=== PATIENT | female | born 2005 ===

== ENCOUNTER 2023-12-02 03:24 | Emergency (ER) | payer SELFPAY ==
[2023-12-02] MEDS: Sodium Chloride 0.9% 10 ML Syringe FLUSH PRN (04:07)
[2023-12-02] MEDS: Sodium Chloride 0.9% 2.5 ML Syringe FLUSH PRN (04:07)
[2023-12-02 04:10] LABS: BASOPHILS ABSOLUTE AUTO 0.05 K/uL (0.00-0.30); BASOPHILS PERCENT AUTO 0.3 % (0.0-1.0); EOSINOPHILS ABSOLUTE AUTO 0.01 K/uL (0.00-0.70); EOSINOPHILS PERCENT AUTO 0.1 % (0.0-5.0); HEMATOCRIT 31.1 % (37.0-47.0); HEMOGLOBIN 9.8 g/dL (12.0-16.0); IMMATURE GRAN ABSOLUTE AUTO 0.05 K/uL (0.00-0.05); IMMATURE GRAN PERCENT AUTO 0.3 % (0.0-0.4); LYMPHOCYTES PERCENT AUTO 14.2 % (50.0-65.0); MEAN CORPUSCULAR HEMOGLOBIN 23.1 pg (28.0-32.0); MEAN CORPUSCULAR HGB CONC 31.5 g/dL (32.0-36.0); MEAN CORPUSCULAR VOLUME 73.3 fL (83.0-99.0); MEAN PLATELET VOLUME 9.2 fL (9.4-12.3); MONOCYTES ABSOLUTE AUTO 0.75 K/uL (0.10-1.40); MONOCYTES PERCENT AUTO 5.1 % (2.0-10.0); NEUTROPHILS ABSOLUTE AUTO 11.88 K/uL (1.50-8.50); PLATELET COUNT,PLT 297 K/uL (150-400); RED BLOOD CELL COUNT 4.24 M/uL (4.10-5.30); WHITE BLOOD CELL COUNT,WBC 14.84 K/uL (4.5-13.5)
[2023-12-02 04:37] LABS: A/G RATIO 0.8 (0.9-1.6); ALBUMIN 3.1 g/dL (3.4-5.0); BILIRUBIN TOTAL 0.3 mg/dL (0.2-1.0); CALCIUM 8.8 mg/dL (8.5-10.1); CARBON DIOXIDE,CO2 19.8 mmol/L (21.0-32.0); CREATININE 0.6 mg/dL (0.6-1.0); EST CRCL DRUG DOSING (CG) 113.8 mL/min; POTASSIUM,K 3.3 mmol/L (3.5-5.1); PROTEIN TOTAL,TP 7.2 g/dL (6.4-8.2)
== END 2023-12-02 05:09 ==
LOC: MW.ED 03:24
DX: O02.1 Missed abortion (principal); Z75.8 Other problems related to medical facilities and other health care
CPT/HCPCS: 36415; 76805; 80053; 85025; 99284; J3490; 99283

== ENCOUNTER 2023-12-02 04:26 | Observation (INO) | payer MEDICAID ==
[2023-12-02] MEDS ORDERED: Sodium Chloride 0.9% 10 ML Syringe FLUSH PRN (05:57)
[2023-12-02] MEDS ORDERED: Sodium Chloride 0.9% 2.5 ML Syringe FLUSH PRN (05:57)
[2023-12-02] MEDS ORDERED: Sodium Chloride 0.9% 20 ML SDV IV PRN (05:57)
[2023-12-02] MEDS ORDERED: fentaNYL 100 MCG/2 ML SDV IV PRN (06:44)
[2023-12-02] MEDS ORDERED: Ketorolac 30 MG/ML SDV IVPUSH ONE (06:47)
[2023-12-02] MEDS: Acetaminophen 1,000 MG in Premix Bag 1 BAG IV ONE (06:59)
[2023-12-02] MEDS ORDERED: Misoprostol 200 MCG Tab VAG ONE (07:00)
[2023-12-02] MEDS: Oxytocin/0.9 % Sodium Chloride 30 UNIT/500 ML BAG ONE (07:00)
[2023-12-02 08:14] LABS: D-DIMER QUANTITATIVE 2.57 mg/L FEU (0.00-0.50); INR < 0.93 (0.86-1.11); PTT,PARTIAL THROMBOPLSTIN TIME 24.3 SEC (23.9-30.7)
[2023-12-02 08:21] LABS: HEMOGLOBIN A1C 5.2 %
[2023-12-02 08:31] LABS: TSH ULTRASENSITIVE 0.79 uIU/mL (0.36-3.74)
[2023-12-02 08:32] LABS: FIBRINOGEN 421 mg/dL (187-446)
[2023-12-02] MEDS ORDERED: Misoprostol 25 MCG (1/4 of 100 MCG) Tab VAG SCH (10:00)
[2023-12-05 12:07] LABS: HOMOCYSTINE 3 umol/L (0-15)
[2023-12-05 18:02] LABS: PARVOVIRUS B19 IGG 4.43 IV (<=0.90); PARVOVIRUS B19 IGM 0.25 IV (<=0.90)
[2023-12-07 14:02] LABS: PROTHROMBIN G20210A PATHOG VAR Negative
== END 2023-12-02 12:38 | disposition home or self-care (01) ==
LOC: INTOOBSV 04:26 → MW.OB 04:26
PROVIDERS: ADMIT Obstetrics & Gynecology; ATTEND Obstetrics & Gynecology
DX: O02.1 Missed abortion (principal); Z3A.18 18 weeks gestation of pregnancy; Z37.1 Single stillbirth
CPT/HCPCS: 36415; 59409; 81240; 83036; 83090; 84443; 85379; 85384; 85610; 85613; 85730; 86747; 86850; 86900; 86901; J0131; J2590

== ENCOUNTER 2025-04-03 05:58 | Inpatient (IN) | payer SELFPAY ==
[2025-04-03] MEDS ORDERED: Sodium Chloride 0.9% 2.5 ML Syringe FLUSH PRN ×2 (07:14→14:50)
[2025-04-03] MEDS ORDERED: Sodium Chloride 0.9% 10 ML Syringe FLUSH PRN ×2 (07:14→14:50)
[2025-04-03] MEDS: Betamethasone Acetate/Betamethasone Sod Phosphate 6 MG/1 ML MDV IM ONE (08:31)
[2025-04-03] MEDS: Terbutaline 1 MG/ML SDV SUBCUT ONE (08:31)
[2025-04-03 08:38] LABS: BASOPHILS ABSOLUTE AUTO 0.03 K/uL (0.00-0.20); BASOPHILS PERCENT AUTO 0.2 % (0.0-1.0); EOSINOPHILS ABSOLUTE AUTO 0.05 K/uL (0.00-0.45); EOSINOPHILS PERCENT AUTO 0.4 % (0.0-6.0); IMMATURE GRAN ABSOLUTE AUTO 0.03 K/uL (0.00-0.05); IMMATURE GRAN PERCENT AUTO 0.2 % (0.0-0.4); LYMPHOCYTES ABSOLUTE AUTO 1.50 K/uL (1.00-4.80); LYMPHOCYTES PERCENT AUTO 10.9 % (24.0-44.0); MEAN PLATELET VOLUME 9.1 fL (9.4-12.3); MONOCYTES ABSOLUTE AUTO 0.69 K/uL (0.00-0.80); MONOCYTES PERCENT AUTO 5.0 % (0.0-8.0); NEUTROPHILS ABSOLUTE AUTO 11.49 K/uL (1.80-7.70); NEUTROPHILS PERCENT AUTO 83.3 % (41.0-71.0); NRBC ABSOLUTE 0.00 K/uL (0.00-0.02); NRBC PERCENT 0.0 /100WBC (0.0-0.2); PLATELET COUNT,PLT 333 K/uL (150-400); RED BLOOD CELL COUNT 4.52 M/uL (4.10-5.30); WHITE BLOOD CELL COUNT,WBC 13.79 K/uL (3.9-11.3)
[2025-04-03 08:47] LABS: A/G RATIO 0.7 (0.9-1.6); ALANINE AMINOTRANSFERASE,ALT 44.0 IU/L (14-63); ASPARTATE AMNIOTRANSFERASE,AST 19.0 IU/L (15-37); BILIRUBIN TOTAL 0.2 mg/dL (0.2-1.0); BLOOD UREA NITROGEN,BUN 5.0 mg/dL (7.0-18.0); CARBON DIOXIDE,CO2 22.1 mmol/L (21.0-32.0); CHLORIDE,CL 105.0 mmol/L (98-107); CREATININE 0.6 mg/dL (0.6-1.0); EST CRCL DRUG DOSING (CG) 111.92 mL/min; GLUCOSE RANDOM 80.0 mg/dL (74-106); POTASSIUM,K 3.3 mmol/L (3.5-5.1); PROTEIN TOTAL,TP 7.0 g/dL (6.4-8.2); SODIUM,NA 137.0 mmol/L (136-145)
[2025-04-03 08:50] LABS: ESTIMATED GFR 131.0 mL/min (>60)
[2025-04-03] MEDS ORDERED: diphenhydrAMINE 50 MG/ML SDV IVPUSH PRN (10:09)
[2025-04-03] MEDS ORDERED: fentaNYL 50 MCG/ML SDV IVPUSH PRN (10:09)
[2025-04-03] MEDS ORDERED: Albuterol 0.083% 2.5 MG/3 ML Neb Soln NEB PRN (10:09)
[2025-04-03] MEDS ORDERED: Nalbuphine 10 MG/1 ML Vial IVPUSH PRN (10:09)
[2025-04-03] MEDS ORDERED: Acetaminophen/oxyCODONE 325-5 MG Tab PO PRN (10:09)
[2025-04-03] MEDS ORDERED: fentaNYL 100 MCG/2 ML SDV IVPUSH PRN (10:09)
[2025-04-03] MEDS ORDERED: Naloxone 0.4 MG/ML SDV IVPUSH PRN (10:09)
[2025-04-03] MEDS ORDERED: Ondansetron 4 MG/2 ML SDV IVPUSH PRN ×3 (10:09→14:50)
[2025-04-03] MEDS ORDERED: Propofol 200 MG/20 ML SDV ONE (10:27)
[2025-04-03] MEDS ORDERED: Ondansetron 4 MG/2 ML SDV ONE ×2 (10:27→10:39)
[2025-04-03] MEDS ORDERED: Succinylcholine/Sod PF 100 MG/5 ML SYRINGE IV ONE ×3 (10:27→11:20)
[2025-04-03] MEDS ORDERED: Morphine PF 10 MG/10 ML SDV ONE (10:29)
[2025-04-03] MEDS ORDERED: fentaNYL 100 MCG/2 ML SDV ONE (10:29)
[2025-04-03] MEDS ORDERED: Phenylephrine 1% 10 MG/ML SDV ONE (10:33)
[2025-04-03] MEDS ORDERED: Oxytocin 10 Units/1 ML SDV ONE (10:39)
[2025-04-03] MEDS ORDERED: Magnesium Sulfate 20 GM/500mL 20 GM/500 ML BAG IV SCH (10:45)
[2025-04-03] MEDS ORDERED: Magnesium Sulfate 2 GM/50 mL 6 GM in Premix Bag 1 BAG IV SCH (10:45)
[2025-04-03] MEDS: Magnesium Sulfate 20 GM/500mL 20 GM/500 ML BAG ONE (10:46)
[2025-04-03] MEDS ORDERED: Calcium Chloride 10% 1 GM/10 ML Syringe ONE (10:47)
[2025-04-03] MEDS ORDERED: Magnesium Sulfate 4 GM/100 mL 4 GM in Premix Bag 1 BAG IV ONE (11:00)
[2025-04-03] MEDS ORDERED: Magnesium Sulfate 2 GM/50 mL 2 GM in Premix Bag 1 BAG IV ONE (11:00)
[2025-04-03] MEDS ORDERED: Dexamethasone 4 MG/ML 5 ML MDV ONE (11:16)
[2025-04-03] MEDS ORDERED: Ropivacaine 0.5% 5 MG/ML 30 ML SDV ONE (11:43)
[2025-04-03] MEDS ORDERED: ePHEDrine 50 MG/ML SDV ONE (11:57)
[2025-04-03] MEDS ORDERED: Midazolam 1 MG/ML 2 ML SDV ONE (13:11)
[2025-04-03] MEDS ORDERED: Lanolin 100% Cream 7 GM Tube TOP PRN (14:50)
[2025-04-03] MEDS ORDERED: Diphtheria,Pertussis(Acell),Tetanus Vaccine 0.5 ML Syringe IM ONE (14:50)
[2025-04-03] MEDS ORDERED: Measles, Mumps & Rubella Vaccine 0.5 ML SDV SUBCUT ONE (14:50)
[2025-04-03] MEDS ORDERED: Carboprost Tromethamine 250 MCG/1 mL Vial IM PRN (14:50)
[2025-04-03] MEDS ORDERED: Oxytocin/0.9 % Sodium Chloride 30 UNIT/500 ML BAG IV SCH (15:00)
[2025-04-03 15:54] LABS: PH,UMBILICAL ARTERIAL 7.36 (7.18-7.38); PH,UMBILICAL VENOUS 7.36 (7.25-7.45)
[2025-04-03] MEDS: Lactated Ringers 1,000 ML IV ONE (16:00)
[2025-04-03] MEDS: Ketorolac 30 MG/ML SDV IVPUSH SCH (19:53)
[2025-04-04 06:01] LABS: BASOPHILS ABSOLUTE AUTO 0.02 K/uL (0.00-0.20); BASOPHILS PERCENT AUTO 0.1 % (0.0-1.0); EOSINOPHILS ABSOLUTE AUTO 0.00 K/uL (0.00-0.45); EOSINOPHILS PERCENT AUTO 0.0 % (0.0-6.0); IMMATURE GRAN ABSOLUTE AUTO 0.12 K/uL (0.00-0.05); IMMATURE GRAN PERCENT AUTO 0.6 % (0.0-0.4); LYMPHOCYTES ABSOLUTE AUTO 1.35 K/uL (1.00-4.80); LYMPHOCYTES PERCENT AUTO 6.4 % (24.0-44.0); MEAN PLATELET VOLUME 8.9 fL (9.4-12.3); MONOCYTES ABSOLUTE AUTO 1.32 K/uL (0.00-0.80); MONOCYTES PERCENT AUTO 6.3 % (0.0-8.0); NEUTROPHILS ABSOLUTE AUTO 18.15 K/uL (1.80-7.70); NEUTROPHILS PERCENT AUTO 86.6 % (41.0-71.0); NRBC ABSOLUTE 0.00 K/uL (0.00-0.02); NRBC PERCENT 0.0 /100WBC (0.0-0.2); PLATELET COUNT,PLT 304 K/uL (150-400); RED BLOOD CELL COUNT 3.84 M/uL (4.10-5.30); WHITE BLOOD CELL COUNT,WBC 20.96 K/uL (3.9-11.3)
== END 2025-04-04 16:42 | disposition home or self-care (01) | DRG 786 ==
LOC: MW.OBCHECK 05:58 → MW.OB 05:59 → MW.OBCHECK 13:34 → MW.OB 13:37
PROVIDERS: ADMIT Obstetrics & Gynecology; ATTEND Obstetrics & Gynecology
PROC: 10D00Z0 Extraction of Products of Conception, High, Open Approach (ICD-10-PCS; principal; 2025-04-03 11:30)
DX: O42.012 Preterm premature rupture of membranes, onset of labor within 24 hours of rupture, second trimester (principal); O45.92 Premature separation of placenta, unspecified, second trimester; O41.02X0 Oligohydramnios, second trimester, not applicable or unspecified; Z3A.23 23 weeks gestation of pregnancy; Z37.0 Single live birth; E87.6 Hypokalemia; O32.1XX0 Maternal care for breech presentation, not applicable or unspecified; Z79.899 Other long term (current) drug therapy; O99.214 Obesity complicating childbirth
CPT/HCPCS: 36415; 51702; 59025; 59514; 76815; 76815-26; 76817; 76817-26; 80053; 82731; 82803; 84112; 85025; 86592; 86850; 86900; 86901; A9270-GY; J0290; J0690; J0702; J1100; J1885; J2250; J2274; J2371; J2405; J2590; J2704; J2765; J2795; J3010; J3105; J3475; J3490; J7120